=== PATIENT | female | born 1990 | race Asian ===

== ENCOUNTER → 2019-04-10 14:58 | Outpatient (CLI) | payer OTHER, SELFPAY ==
--- NOTE | 2019-04-10 15:04 | DI.US.S_ITS ---
PROCEDURE: US OB <= 14 WEEKS FETUS INDICATIONS: DATES OUTSIDE/PRIOR DATING DATA: First dating scan (date and location): 04/10/19. Estimated date of delivery (RACHEL) from first dating scan: 11/29/19. TECHNIQUE: Real-time scanning was performed of the fetus and maternal pelvic organs, with image documentation. Endovaginal scanning was also performed to better visualize the fetus and maternal ovaries. COMPARISON: None. FINDINGS: Embryo: There is a single intrauterine with a gestational sac, yolk sac, and pole visualized. [place]-rump length measured 8 mm corresponding to 6 weeks 5 days. heart activity demonstrated measuring 153 beats per minute. Measurement variability in dating: +/- 4 weeks by LMP, +/- 7 days by mean sac diameter (use before 6 weeks gestation if crown-rump length not able to be measured), +/- 5 days by crown-rump length (up to 8 weeks 6 days gestation), +/- 7 days by crown-rump length (up to 13 weeks 6 days gestation). Maternal organs: Ovaries within normal limits, with left corpus luteal cyst measuring 1.5 cm.. Limited images through the kidneys demonstrate no hydronephrosis. IMPRESSION: 1. 6 week 5 day single living intrauterine with estimated delivery date of 11/29/19. Dictated by: Дмитрий Coleman [facility] Interpreted: Beto Rizo MD on 04/10/2019 at 16:00 Approved by: Beto Rizo M.D. on 04/10/2019 at 17:58
== END ==
PROVIDERS: Visit Provider Obstetrics & Gynecology
DX: Z36.87 Encounter for antenatal screening for uncertain dates (principal); Z3A.01 Less than 8 weeks gestation of pregnancy
CPT/HCPCS: 76801; 76817

== ENCOUNTER → 2019-05-08 14:17 | Outpatient (CLI) | payer OTHER, MEDICAID, SELFPAY ==
[2019-05-08 15:02] LABS: Add Manual Diff / Slide Review NO; Basophils Absolute Auto 100 /uL (0-100); Basophils Percent Auto 0.7 % (0-2); Eosinophils Absolute Auto 300 /uL (0-450); Eosinophils Percent Auto 3.3 % (2-4); Hematocrit 35.6 % (36-46); Hemoglobin 12.3 g/dL (12.0-16.0); Lymphocytes Absolute Auto 1800 /uL (1100-4500); Lymphocytes Percent Auto 17.8 % (25-40); Mean Corpuscular HGB Conc 34.6 % (30-36); Mean Corpuscular Hemoglobin 28.5 PG (26-34); Mean Corpuscular Volume 82.5 fL (80-100); Monocytes Absolute Auto 500 /uL (0-900); Monocytes Percent Auto 4.6 % (3-14); Neutrophils Absolute Auto 7400 /uL (1500-7000); Neutrophils Percent Auto 73.6 % (50-75); Platelet Count 284 X10^3/uL (150-400); Red Blood Cell Count 4.31 X10^6/uL (4.0-5.2); Red Cell Distribution Width 13.1 % (11.6-14.8); White Blood Cell Count 10.1 X10^3/uL (4.5-11.0)
[2019-05-08 15:06] LABS: Appearance Urine UA CLEAR; Bilirubin Urine UA NEGATIVE (NEGATIVE); Color Urine UA YELLOW; Glucose Urine UA TRACE g/dL (Negative); Ketones Urine UA NEGATIVE (NEGATIVE); Leukocyte Esterase Urine UA NEGATIVE (NEGATIVE); Nitrite Urine UA NEGATIVE (Negative); Occult Blood Urine UA 3+ (Negative); Protein Urine UA NEGATIVE (Negative); Specific Gravity Urine UA <=1.005 (1.000-1.035); Urobilinogen Urine UA 0.2 E.U./dL (0.2)
[2019-05-08 15:18] LABS: Bacteria Urine None Seen; WBC Urine None Seen (0-5/HPF)
[2019-05-08 15:19] LABS: Culture Indicated Urine Cult Not Indicated; RBC Urine 1-5/HPF (0-5/HPF); Squamous Epithelial Cell Urine 1-5 /HPF (0-5/HPF)
[2019-05-08 16:30] LABS: Rubella Antibody IgG 33.8 IU/mL (>15)
[2019-05-08 16:44] LABS: Hepatitis B Surface Antigen NEGATIVE s/c (NEGATIVE)
[2019-05-08 16:47] LABS: HIV 1 & 2 Ab/Ag 4th Gen Combo NEGATIVE (NEGATIVE); Hep C Virus Ab w/Reflex Quant NEGATIVE s/c (NEGATIVE)
[2019-05-10 17:58] LABS: RPR Screen Nonreactive (Nonreactive)
== END ==
PROVIDERS: Obstetrics & Gynecology; PCP Obstetrics & Gynecology; Visit Provider Obstetrics & Gynecology
DX: Z34.81 Encounter for supervision of other normal pregnancy, first trimester (principal)
CPT/HCPCS: 36415; 80055; 81003; 81015; 86787; 86803; 86850; 86900; 86901; 87077; 87086; 87389

== ENCOUNTER → 2019-06-18 09:16 | Outpatient (CLI) | payer OTHER, MEDICAID, SELFPAY | PROVIDERS: PCP Obstetrics & Gynecology; Visit Provider Obstetrics & Gynecology | DX: Z34.02 Encounter for supervision of normal first pregnancy, second trimester (principal); Z53.9 Procedure and treatment not carried out, unspecified reason ==

== ENCOUNTER → 2019-07-13 06:59 | Outpatient (CLI) | payer OTHER, MEDICAID, SELFPAY ==
--- NOTE | 2019-07-13 07:01 | DI.US.S_ITS ---
PROCEDURE: US OB >= 14 WEEKS FETUS INDICATIONS: ANATOMY; KNOWN PREVIA OUTSIDE/PRIOR DATING DATA: Last menstrual period (LMP): Unknown. LMP-based estimated date of delivery (RACHEL): Unknown. First dating scan (date and location): 04/10/19. Estimated date of delivery (RACHEL) from first dating scan: 11/29/19. TECHNIQUE: Real-time scanning was performed of the fetus, with image documentation and biometric measurements. COMPARISON: [facility], OB <= 14 WEEKS FETUS, 06/15/2019, 16:32. [facility] OB <= 14 WEEKS FETUS, 05/08/2019, 13:51. [facility] OB <= 14 WEEKS FETUS, 04/10/2019, 15:11. [facility], OB >= 14 WEEKS FETUS, 06/22/2019, 11:02. FINDINGS: General: A single living intrauterine gestation is present. Presentation: Vertex. Placenta: Placental position is posterior. Lower uterine contraction is present throughout the exam, limiting evaluation. Amniotic fluid index: 15.5 cm, normal range is 5-24 cm. heart rate: 152 beats per minute. Maternal cervical canal: 4.5 cm long. Normal lower limit is 2.5 cm. Report any funneling of internal cervical os: % of canal length, shape (U or V), width or any U-shaped funneling. biometrics: Biparietal diameter: 5.0 cm 21 weeks zero days Head circumference: 18.6 cm 20 weeks 6 days Abdominal circumference: 17.6 cm 22 weeks 3 days Femur length: 3.3 cm 20 weeks one day Estimated gestational age from initial scan: 20 weeks one day Composite gestational age from present scan: 21 weeks one day Estimated weight and percentile: 420 g 97th percentile Measurement variability for biometric dating: +/- 7 days from 14 weeks to 15 weeks 6 days gestation, +/- 10 days from 16 weeks to 21 weeks 6 days gestation, +/- 2 weeks from 22 weeks to 27 weeks 6 days gestation, +/- 3 weeks for 28 weeks gestation or later. weight reference: 4500 g or EFW >90/95% is considered macrosomia or large for gestational age. EFW <10% is small for gestational age. EFW 5% or less is considered intra-uterine growth restriction. Anatomic survey: Neuro: Ventricles are non-dilated at less than 10 mm. Cisterna magna is normal at 3-11 mm. Cerebellum is normal in size and morphology. Nuchal skin fold: Normal at less than 6 mm between 14-21 weeks gestational age. Face: Nose and lips, facial profile are not well seen. Spine: No evidence for spina bifida. Heart: 4-chambered heart is present, with normal ventricular outflow tracts. Diaphragm: Diaphragm is intact. Stomach: Left-sided stomach is present. Kidneys: No hydronephrosis. Normal is less than 5 mm in 2nd trimester, less than 7 mm in 3rd trimester. Cord: 3-vessel cord has orthotopic insertion. Bladder: Normal in size. Extremities: All 4 extremities identified. Other: Uterine fibroid is noted. IMPRESSION: 1. Single intrauterine with ultrasound gestational age today is 21 weeks one day compared to 20 weeks one day from initial ultrasound. Ultrasound RACHEL is unchanged at 11/29/19. 2. Nonspecific tachycardia is identified. Recommend interval follow up for additional evaluation. 3. Profiled and not well-seen. Recommend interval follow up for further evaluation. 4. Lower uterine segment contraction present throughout exam, which limits evaluation for previa. Interval followup is recommended to further evaluate for presence of previa. Dictated by: Tameka Okeefe M.D. on 07/13/2019 at 10:11 Approved by: Tameka Okeefe M.D. on 07/13/2019 at 10:31
== END ==
PROVIDERS: PCP Obstetrics & Gynecology; Referring Provider Obstetrics & Gynecology; Visit Provider Obstetrics & Gynecology
DX: O44.02 Complete placenta previa NOS or without hemorrhage, second trimester (principal); O36.8320 Maternal care for abnormalities of the fetal heart rate or rhythm, second trimester, not applicable or unspecified; Z3A.21 21 weeks gestation of pregnancy
CPT/HCPCS: 76811

== ENCOUNTER → 2019-07-21 08:40 | Outpatient (CLI) | payer OTHER, MEDICAID, SELFPAY ==
--- NOTE | 2019-07-21 08:41 | DI.US.S_ITS ---
PROCEDURE: US OB FOLLOW UP INDICATIONS: PROFILE AND PLACENTAL LOCATION OUTSIDE/PRIOR DATING DATA: Last menstrual period (LMP): Unknown. LMP-based estimated date of delivery (RACHEL): Unknown. First dating scan (date and location): 04/10/19. Estimated date of delivery (RACHEL) from first dating scan: 11/29/19. TECHNIQUE: Real-time scanning was performed of the fetus, with image documentation. Endovaginal scanning: Was performed COMPARISON: [facility], OB >= 14 WEEKS FETUS, 07/13/2019, 7:23. [facility], US OB >= 14 WEEKS FETUS, 06/22/2019, 11:02. [facility], OB <= 14 WEEKS FETUS, 06/15/2019, 16:32. [facility], OB <= 14 WEEKS FETUS, 05/08/2019, 13:51. [facility], OB <= 14 WEEKS FETUS, 04/10/2019, 15:11. FINDINGS: A single living intrauterine gestation is present. Presentation: Transverse/head maternal right. Placenta: Placental position is posterior, and there is marginal previa Amniotic fluid index: 16.2 cm, normal range is 5-24 cm. heart rate: 208-75 beats per minute. Maternal cervical canal: 5.9 cm long. Normal lower limit is 2.5 cm. Estimated gestational age from initial scan: 21 weeks 2 days. IMPRESSION: Single living intrauterine fetus in transverse presentation as above Marginal placenta previa. Recommend followup arrhythmia as before, with heart rate spanning 75-28 beats per minute. facial profile is only partially visualized secondary to gestational position. As clinically desired, followup could be performed Dictated by: Ji Ahuja M.D. on 07/21/2019 at 14:11 Approved by: Ji Ahuja M.D. on 07/21/2019 at 14:48
== END ==
PROVIDERS: PCP Obstetrics & Gynecology; Referring Provider Obstetrics & Gynecology; Visit Provider Obstetrics & Gynecology
DX: Z36.2 Encounter for other antenatal screening follow-up (principal); Z3A.21 21 weeks gestation of pregnancy
CPT/HCPCS: 76816; 76817

== ENCOUNTER → 2019-07-22 10:12 | Outpatient (CLI) | payer OTHER, MEDICAID, SELFPAY ==
[2019-07-22 11:16] LABS: Add Manual Diff / Slide Review NO; Basophils Absolute Auto 0 /uL (0-100); Basophils Percent Auto 0.2 % (0-2); Eosinophils Absolute Auto 300 /uL (0-450); Eosinophils Percent Auto 2.2 % (2-4); Hematocrit 35.4 % (36-46); Hemoglobin 12.2 g/dL (12.0-16.0); Lymphocytes Absolute Auto 1900 /uL (1100-4500); Lymphocytes Percent Auto 12.9 % (25-40); Mean Corpuscular HGB Conc 34.4 % (30-36); Mean Corpuscular Hemoglobin 28.6 PG (26-34); Mean Corpuscular Volume 83.3 fL (80-100); Monocytes Absolute Auto 600 /uL (0-900); Monocytes Percent Auto 3.9 % (3-14); Neutrophils Absolute Auto 11600 /uL (1500-7000); Neutrophils Percent Auto 80.8 % (50-75); Platelet Count 280 X10^3/uL (150-400); Red Blood Cell Count 4.24 X10^6/uL (4.0-5.2); Red Cell Distribution Width 13.1 % (11.6-14.8); White Blood Cell Count 14.4 X10^3/uL (4.5-11.0)
[2019-07-22 12:53] LABS: Free T4, Direct Thyroxine 0.81 ng/dL (0.78-2.19)
[2019-07-22 13:07] LABS: Thyroid Stimulating Hormone 0.62 uIU/mL (0.47-4.68)
[2019-07-24 17:16] LABS: ANA Screen, IFA NEGATIVE (NEGATIVE)
[2019-07-25 16:25] LABS: Cardiolipin Ab IgG < 14 GPL; Cardiolipin Ab IgM < 12 MPL; PTT-LA Screen 31 seconds (< OR = 40); dRVVT Screen 33 seconds (< OR = 45)
[2019-07-26 10:29] LABS: B2-Glycoprotein I IgA AB < 9 SAU (< OR = 20); B2-Glycoprotein I IgG AB < 9 SGU (< OR = 20); B2-Glycoprotein I IgM AB < 9 SMU (< OR = 20); Cardiolipin Ab IgG < 14 GPL; Cardiolipin Ab IgM < 12 MPL; Phos. Serine AB IgM < 25 U/mL
== END ==
PROVIDERS: PCP Obstetrics & Gynecology; Referring Provider Obstetrics & Gynecology; Visit Provider Obstetrics & Gynecology
DX: Z34.90 Encounter for supervision of normal pregnancy, unspecified, unspecified trimester (principal)
CPT/HCPCS: 36415; 84439; 84443; 85025; 85597; 85613; 85730; 86038; 86146; 86147; 86148; 86235

== ENCOUNTER 2019-07-24 08:49 | Emergency (ER) | payer OTHER, MEDICAID, SELFPAY ==
[2019-07-24 08:56] VITALS: BP 129/84; PULSE 104; RESP 16; TEMP 37; O2SAT 99; BMI 26.5
--- NOTE | 2019-07-24 09:06 | PC.NURSE ---
Pt 21 wks . Pl[address] Previa. Dr Pacheco is her OB. having abd pain x 3 days. US in [place] yesterday due to baby's HR being elevated and her having pain. pain subsided this morning around 0730 when she noticed she was bleeding. pt states no clots and not saturating a pad an hour but blood was enough to soak through her pants onto bedsheets appears in good color. HR elevated 120's on arrival. IV placed and labs sent with T&S.
--- NOTE | 2019-07-24 09:12 | ED.PREGNANCY ---
HPI - General Chief complaint: OB/Uterine Contractions Stated complaint: Abdominal Pain / 21 weeks Time Seen by Provider: 07/24/19 09:04 Mode of arrival: Ambulatory History of Present Illness HPI Narrative: 28-year-old at 21 weeks gestational age with vaginal bleeding, known placenta previa with high risk and suspected cardiac abnormalities. Had some mild cramping last night and then over the course of the evening she had some vaginal bleeding that this morning was enough to soak through her underwear on to the bedding. More bleeding than simply spotting in eating a panty liner however not bleeding enough to fill of had an hour. It is red blood and cramping has completely stopped at this time. Related Data Home Medications Medication Instructions Recorded Confirmed prenat.vits,leo,[id number] 1 tab PO DAILY 04/27/19 07/24/19 Previous Rx's Medication Instructions Recorded docusate sodium 100 mg PO DAILY #30 cap 07/24/19 Allergies Allergy/AdvReac Type Severity Reaction Status Date / Time No Known Drug Allergies Allergy Verified 05/30/19 13:42 Review of Systems Review of Systems Narrative: Anxious, mild constipation Denies ? fever ? cough ? cold ? chills ? chest pain ? dyspnea ? orthopnea ? wheezing ? vomiting ? skin changes ? rashes Exam Narrative Exam Narrative: General: Healthy appearing, in no acute distress. Able to give a complete and coherent history. Well-nourished well-developed HEENT: Moist mucous membranes, normal sclera with reactive pupils, Neck: , supple Respiratory: Lungs are clear to auscultation, no wheezing no rales no rhonchi. Full and symmetrical air movement Cardiac: Regular rate and rhythm no murmurs no bruits Abdomen: Soft, gravid, nontender, good bowel tones, no flank pain Skin: Warm and dry, no rashes Neurologic: Grossly neurologically intact with no obvious asymmetries or abnormalities Extremities: No trauma, well perfused Psych: Cooperative, appropriate insight and affect Bedside ultrasound reveals a viable male fetus intrauterine, 3 vessel cord, normal fluid levels, cardiac exam is abnormal with an irregularity and it appears that he has right ventricle enlargement. Placenta previa approximately a cm of the placenta is overlying the internal os and the leading edge of the placenta has a small subchorionic hemorrhage. There is no funneling of the cervix. Initial Vital Signs Initial Vital Signs: Vital Signs Temperature 98.6 F 07/24/19 08:56 Pulse Rate 104 H 07/24/19 08:56 Respiratory Rate 16 07/24/19 08:56 Blood Pressure 129/84 07/24/19 08:56 Pulse Oximetry 99 07/24/19 08:56 Course Orders Ordered: ED Orders 07/24/19 11:00 EKG-12 Lead Stat Vital Signs Vital signs: Vital Signs - 8 hr 07/24/19 11:32 Pulse Rate 104 H Respiratory Rate 16 Blood Pressure 115/58 L Pulse Oximetry 99 MDM - OB/Uterine Contractions Lab Data Result diagrams: 07/24/19 09:03 07/24/19 09:03 Labs: Lab Results 07/24/19 07/24/19 07/24/19 Range/Units 09:03 09:03 09:03 WBC 14.4 H (4.5-11.0) X10^3/uL RBC 4.22 (4.0-5.2) X10^6/uL Hgb 12.1 (12.0-16.0) g/dL Hct 35.3 L (36-46) % MCV 83.7 (80-100) fL MCH 28.8 (26-34) PG MCHC 34.4 (30-36) % RDW 13.1 (11.6-14.8) % Plt Count 253 (150-400) X10^3/uL Neut % (Auto) 82.4 H (50-75) % Lymph % (Auto) 10.9 L (25-40) % [place] % (Auto) 4.5 (3-14) % Eos % (Auto) 1.8 L (2-4) % Baso % (Auto) 0.4 (0-2) % Neut # (Auto) 45493 H (9716-3847) /uL Lymph # (Auto) 1600 (3028-2931) /uL [place] # (Auto) 700 (0-900) /uL Eos # (Auto) 300 (0-450) /uL Baso # (Auto) 100 (0-100) /uL Sodium 137 (137-145) mmol/L Potassium 3.9 (3.4-5.1) mmol/L Chloride 105 (98-107) mmol/L Carbon Dioxide 22 (22-32) mmol/L BUN 6 L (7-17) mg/dL Creatinine 0.40 L (0.52-1.04) mg/dL Estimated GFR > 60.0 (>60) mL/min BUN/Creatinine Ratio 15.0 (6-22) Glucose 99 (70-100) mg/dL Calcium 9.4 (8.4-10.2) mg/dL Total Bilirubin 0.4 (0.2-1.3) mg/dL AST 30 (14-36) IU/L ALT 20 (<35) IU/L Alkaline Phosphatase 62 (38-126) U/L Total Protein 8.0 (6.3-8.2) g/dL Albumin 4.2 (3.5-5.0) g/dL Globulin 3.8 (1.7-4.1) g/dL Albumin/Globulin Ratio 1.1 (1.0-2.8) HCG, Quant 83352 mIU/mL Urine Color Urine Appearance Urine pH (4.5-8.0) Ur Specific [place] (1.000-1.035) Urine Protein (Negative) Urine Glucose (UA) (Negative) g/dL Urine Ketones (NEGATIVE) Urine Occult Blood (Negative) Urine Nitrate (Negative) Urine Bilirubin (NEGATIVE) Urine Urobilinogen (0.2) E.U./dL Ur Leukocyte Esterase (NEGATIVE) Urine RBC (0-5/HPF) Urine WBC (0-5/HPF) Ur Squamous Epith Cells (0-5/HPF) Urine Bacteria (None) Ur Culture Indicated? Blood Type A Positive Antibody Screen Negative 07/24/19 Range/Units 09:24 WBC (4.5-11.0) X10^3/uL RBC (4.0-5.2) X10^6/uL Hgb (12.0-16.0) g/dL Hct (36-46) % MCV (80-100) fL MCH (26-34) PG MCHC (30-36) % RDW (11.6-14.8) % Plt Count (150-400) X10^3/uL Neut % (Auto) (50-75) % Lymph % (Auto) (25-40) % [place] % (Auto) (3-14) % Eos % (Auto) (2-4) % Baso % (Auto) (0-2) % Neut # (Auto) (7568-0100) /uL Lymph # (Auto) (7786-4734) /uL [place] # (Auto) (0-900) /uL Eos # (Auto) (0-450) /uL Baso # (Auto) (0-100) /uL Sodium (137-145) mmol/L Potassium (3.4-5.1) mmol/L Chloride (98-107) mmol/L Carbon Dioxide (22-32) mmol/L BUN (7-17) mg/dL Creatinine (0.52-1.04) mg/dL Estimated GFR (>60) mL/min BUN/Creatinine Ratio (6-22) Glucose (70-100) mg/dL Calcium (8.4-10.2) mg/dL Total Bilirubin (0.2-1.3) mg/dL AST (14-36) IU/L ALT (<35) IU/L Alkaline Phosphatase (38-126) U/L Total Protein (6.3-8.2) g/dL Albumin (3.5-5.0) g/dL Globulin (1.7-4.1) g/dL Albumin/Globulin Ratio (1.0-2.8) HCG, Quant mIU/mL Urine Color Red Urine Appearance Sl cloudy Urine pH 5.5 (4.5-8.0) Ur Specific [place] 1.020 (1.000-1.035) Urine Protein Negative (Negative) Urine Glucose (UA) Trace H (Negative) g/dL Urine Ketones Trace H (NEGATIVE) Urine Occult Blood 3+ H (Negative) Urine Nitrate Negative (Negative) Urine Bilirubin Negative (NEGATIVE) Urine Urobilinogen 0.2 (0.2) E.U./dL Ur Leukocyte Esterase Trace H (NEGATIVE) Urine RBC 30-100/hpf H (0-5/HPF) Urine WBC 0-1/hpf (0-5/HPF) Ur Squamous Epith Cells 10-30 /hpf H D (0-5/HPF) Urine Bacteria None seen (None) Ur Culture Indicated? Cult not indicated Blood Type Antibody Screen MDM Narrative Medical decision making narrative: 1043: Care reveiwed with Dr Pacheco. Will come to evjus pt in ED and help with dispo planning Discharge Plan Departure Patient Disposition: Home Clinical Impression: Placenta previa Qualifiers: Trimester: second trimester Qualified Code(s): O44.02 - Complete placenta previa NOS or without hemorrhage, second trimester Qualifiers: Weeks of gestation: 21 weeks Qualified Code(s): Z3A.21 - 21 weeks gestation of Discharge Date/Time: 07/24/19 11:33 Instructions: DI for Placenta Previa Activity Restrictions/Additional Instructions: Thank you for coming in today The bleeding is from the very edge of your placenta just lifting up a bit. There is nothing more that needs to or can be done at this time. Your baby looks like he is tolerating this very nicely. For your constipation, please use the stool softener, docusate. You can use it once daily and if that isn't enough it can be increased to twice daily very safely and will not affect her otherwise. I would recommend modified bedrest, it is okay to walk around her house but I would not recommend specific exercise, extended excursions, or lifting heavy things. Pelvic rest is also appropriate. This means no fingers, toys or penises in your vagina and no organisms. Please keep your follow-up appointment with all of your OB providers. If you find that you are bleeding more heavily, it is bright red or your feeling more dizzy, lightheaded or short of breath you do need to return to the emergency department I hope everything works out well for you. I wish you the best Prescriptions: New docusate sodium 100 mg capsule 100 mg PO DAILY Qty: 30 RF: 0 No Action prenat.vits,leo,[id number] Tablet 1 tab PO DAILY RF: 0 Referrals: Germania Pacheco MD [Primary Care Provider] -
[2019-07-24 09:24] LABS: Add Manual Diff / Slide Review NO; Basophils Absolute Auto 100 /uL (0-100); Basophils Percent Auto 0.4 % (0-2); Eosinophils Absolute Auto 300 /uL (0-450); Eosinophils Percent Auto 1.8 % (2-4); Hematocrit 35.3 % (36-46); Hemoglobin 12.1 g/dL (12.0-16.0); Lymphocytes Absolute Auto 1600 /uL (1100-4500); Lymphocytes Percent Auto 10.9 % (25-40); Mean Corpuscular HGB Conc 34.4 % (30-36); Mean Corpuscular Hemoglobin 28.8 PG (26-34); Mean Corpuscular Volume 83.7 fL (80-100); Monocytes Absolute Auto 700 /uL (0-900); Monocytes Percent Auto 4.5 % (3-14); Neutrophils Absolute Auto 11900 /uL (1500-7000); Neutrophils Percent Auto 82.4 % (50-75); Platelet Count 253 X10^3/uL (150-400); Red Blood Cell Count 4.22 X10^6/uL (4.0-5.2); Red Cell Distribution Width 13.1 % (11.6-14.8); White Blood Cell Count 14.4 X10^3/uL (4.5-11.0)
[2019-07-24 09:30] LABS: Bacteria Urine None Seen
[2019-07-24 09:30] LABS: Alanine Aminotransferase 20 IU/L (<35); Albumin 4.2 g/dL (3.5-5.0); Albumin Globulin Ratio 1.1 (1.0-2.8); Alkaline Phosphatase 62 U/L (38-126); Aspartate Aminotransferase 30 IU/L (14-36); Bilirubin Total 0.4 mg/dL (0.2-1.3); Blood Urea Nitrogen 6 mg/dL (7-17); Calcium 9.4 mg/dL (8.4-10.2); Carbon Dioxide 22 mmol/L (22-32); Chloride 105 mmol/L (98-107); Estimated Glomerular Filt Rate > 60.0 mL/min (>60); Globulin 3.8 g/dL (1.7-4.1); Glucose 99 mg/dL (70-100); Potassium 3.9 mmol/L (3.4-5.1); Sodium 137 mmol/L (137-145)
[2019-07-24 09:33] LABS: Appearance Urine UA SL CLOUDY; Bilirubin Urine UA NEGATIVE (NEGATIVE); Color Urine UA RED; Glucose Urine UA TRACE g/dL (Negative); Ketones Urine UA TRACE (NEGATIVE); Leukocyte Esterase Urine UA TRACE (NEGATIVE); Nitrite Urine UA NEGATIVE (Negative); Occult Blood Urine UA 3+ (Negative); Protein Urine UA NEGATIVE (Negative); Urobilinogen Urine UA 0.2 E.U./dL (0.2)
[2019-07-24 09:37] LABS: pH Urine UA 5.5 (4.5-8.0)
[2019-07-24 09:39] LABS: Culture Indicated Urine Cult Not Indicated; RBC Urine 30-100/HPF (0-5/HPF); Squamous Epithelial Cell Urine 10-30 /HPF (0-5/HPF); WBC Urine 0-1/HPF (0-5/HPF)
--- NOTE | 2019-07-24 10:03 | PC.NURSE ---
bedside US completed by Dr Andrade. pt tolerated well.
[2019-07-24 10:10] LABS: HCG Quantitative /Beta subunit 24666 mIU/mL; HEMOLYSIS 21 (0-50)
--- NOTE | 2019-07-24 11:15 | PC.NURSE ---
Dr vance to come consult. EKG being obtained
--- NOTE | 2019-07-24 11:26 | P.CONS_ITS ---
History of Present Illness Consult details Date Patient Seen: 07/24/19 Time Patient Seen: 11:00 Chief complaint: Abdominal Pain / 21 weeks Reason for consult: vaginal bleeding, cramping and heart arrhythmia Requesting provider: Yuliet Andrade Narrative: This patient is a 28yo @21+5 by 1st trimester ultrasound, with a known posterior placenta previa and currently being evaluated for hearth arrhythmia, presenting due to cramping and spotting overnight. She reports that she had her appointment with [facility] and cardiology yesterday, and that she walked a lot in [place] and did shopping. She reports that overnight she began having lower abdominal and especially left sided cramping pain, and that this morning, she had bright red bleeding heavy enough to soak through her pants while lying in bed with ongoing leakage which slowed to spotting during her ambulance ride to the ED. She reports that the cramping is ongoing and especially located in the LLQ. She reports no change in movement from her baseline, and denies dysuria or other UTI symptoms. She does report significant constipation. She has been adherent to pelvic rest. The patient's has been complicated by vaginal bleeding and spotting since the 1st trimester, with a posterior placenta extending approx. 1cm over the internal os at this point. She required a laparascopic appendectomy early in the 1st trimester. At her anatomy scan, a heart rate was noted to be variable between 75-220, and evaluation in the office revealed an irregularly irregular rhythm. The patient has no personal or family history of thyroid dysfunction or autoimmune disease, and is currently being evaluated by [facility] for both the heart abnormality and the previa. She has a history of two uncomplicated vaginal deliveries, and has no other contributory medical or surgical history. Meds Home Medications and Allergies Home Medications Medication Instructions Recorded Confirmed Type prenat.vits,leo,[id number]-[id number] 1 tab PO DAILY 04/27/19 07/24/19 History docusate sodium 100 mg PO DAILY #30 cap 07/24/19 Rx Allergies Allergy/AdvReac Type Severity Reaction Status Date / Time No Known Drug Allergies Allergy Verified 05/30/19 13:42 Review of Systems Constitutional Constitutional: Reports system reviewed and no additional complaints, except as documented Cardiovascular Cardiovascular: Reports system reviewed; no additional complaints, except as documented Respiratory Respiratory: Reports system reviewed and no additional complaints, except as documented Gastrointestinal Gastrointestinal: Reports as per HPI Genitourinary Genitourinary: Reports as per HPI Exam Vital Signs (past 8 hours): - 07/24/19 08:56 Temperature 98.6 F Pulse Rate 104 H Respiratory Rate 16 Blood Pressure 129/84 Pulse Oximetry 99 Oxygen Delivery Method Room Air Const General: cooperative, comfortable, well groomed and anxious Other: Patient accompanied by family, anxious and lying in bed. GI Palpation: soft and tender (especially in LLQ) Other: Deferred due to previa and described bleeding Objective Labs Result Diagrams: 07/24/19 09:03 07/24/19 09:03 Labs: Laboratory Results - last 24 hr 07/24/19 07/24/19 07/24/19 09:03 09:03 09:03 WBC 14.4 H RBC 4.22 Hgb 12.1 Hct 35.3 L MCV 83.7 MCH 28.8 MCHC 34.4 RDW 13.1 Plt Count 253 Neut % (Auto) 82.4 H Lymph % (Auto) 10.9 L [place] % (Auto) 4.5 Eos % (Auto) 1.8 L Baso % (Auto) 0.4 Neut # (Auto) 09816 H Lymph # (Auto) 1600 [place] # (Auto) 700 Eos # (Auto) 300 Baso # (Auto) 100 Sodium 137 Potassium 3.9 Chloride 105 Carbon Dioxide 22 BUN 6 L Creatinine 0.40 L Estimated GFR > 60.0 BUN/Creatinine Ratio 15.0 Glucose 99 Calcium 9.4 Total Bilirubin 0.4 AST 30 ALT 20 Alkaline Phosphatase 62 Total Protein 8.0 Albumin 4.2 Globulin 3.8 Albumin/Globulin Ratio 1.1 HCG, Quant 47345 Urine Color Urine Appearance Urine pH Ur Specific [place] Urine Protein Urine Glucose (UA) Urine Ketones Urine Occult Blood Urine Nitrate Urine Bilirubin Urine Urobilinogen Ur Leukocyte Esterase Urine RBC Urine WBC Ur Squamous Epith Cells Urine Bacteria Ur Culture Indicated? Blood Type A Positive Antibody Screen Negative 07/24/19 09:24 WBC RBC Hgb Hct MCV MCH MCHC RDW Plt Count Neut % (Auto) Lymph % (Auto) [place] % (Auto) Eos % (Auto) Baso % (Auto) Neut # (Auto) Lymph # (Auto) [place] # (Auto) Eos # (Auto) Baso # (Auto) Sodium Potassium Chloride Carbon Dioxide BUN Creatinine Estimated GFR BUN/Creatinine Ratio Glucose Calcium Total Bilirubin AST ALT Alkaline Phosphatase Total Protein Albumin Globulin Albumin/Globulin Ratio HCG, Quant Urine Color Red Urine Appearance Sl cloudy Urine pH 5.5 Ur Specific [place] 1.020 Urine Protein Negative Urine Glucose (UA) Trace H Urine Ketones Trace H Urine Occult Blood 3+ H Urine Nitrate Negative Urine Bilirubin Negative Urine Urobilinogen 0.2 Ur Leukocyte Esterase Trace H Urine RBC 30-100/hpf H Urine WBC 0-1/hpf Ur Squamous Epith Cells 10-30 /hpf H D Urine Bacteria None seen Ur Culture Indicated? Cult not indicated Blood Type Antibody Screen Assessment & Plan Assessment & Plan narrative: This patient presents with mild bleeding and cramping likely due to her known placenta previa. The patient's fetus is pre- viable at 21 weeks gestation, and unfortunately, there are no therapeutic interventions that can stop spotting from the previa or a chronic placental abruption without ending the . We discussed that the heart rate abnormality is likely unrelated to the previa and bleeding, as the patient has not hemorrhaged to the point of impairing blood supply to the fetus. She also has a closed and long cervix, with no signs of labor. I presented the option of observation in L&D vs at home, and discussed precautions that should bring the patient into the hospital, including hemorrhage and signs of labor. The patient and her family vocalized understanding, and opted for discharge home with precautions and clinic follow up on Saturday. We discussed pelvic rest and modified bedrest, meaning ambulation is acceptable without lifting or prolonged ambulation. The patient also endorsed significant constipation, which may be co ntributing to her left lower quadrant cramping and which could lead to undesirable straining. The patient will be discharged on colace. I encouraged the patient and her family to call the clinic/answering service with any questions or concerns over the weekend, and to call or return to the ED if new symptoms develop or if her current symptoms worsen.
[2019-07-24 11:32] VITALS: BP 115/58; PULSE 104; RESP 16; O2SAT 99
== END 2019-07-24 11:33 | disposition home or self-care (01) ==
PROVIDERS: Emergency Provider Emergency Medicine; PCP Obstetrics & Gynecology
DX: O44.02 Complete placenta previa NOS or without hemorrhage, second trimester (principal); R07.9 Chest pain, unspecified; Z3A.21 21 weeks gestation of pregnancy
CPT/HCPCS: 36415; 80053; 81001; 84702; 85025; 86850; 86900; 86901; 93005; 93010; 99284

== ENCOUNTER 2019-08-03 14:52 | Observation (INO) | payer OTHER, MEDICAID, SELFPAY ==
--- NOTE | 2019-08-03 15:23 | DI.US.S_ITS ---
PROCEDURE: US OB LIMITED INDICATIONS: R/O PLACENTA PREVIA, VAG BLEEDING, DECREASED FHR OUTSIDE/PRIOR DATING DATA: Last menstrual period (LMP): Unknown. LMP-based estimated date of delivery (RACHEL): Unknown. First dating scan (date and location): 04/10/19. Estimated date of delivery (RACHEL) from first dating scan: 11/29/19. TECHNIQUE: Real-time scanning was performed of the fetus, with image documentation and biometric measurements. Endovaginal scanning: Performed COMPARISON: [facility], OB >= 14 WEEKS FETUS, 07/27/2019, 10:52. [facility] OB FOLLOW UP, 07/21/2019, 9:17. [facility] OB >= 14 WEEKS FETUS, 07/13/2019, 7:23. [facility] OB >= 14 WEEKS FETUS, 06/22/2019, 11:02. [facility] OB <= 14 WEEKS FETUS, 06/15/2019, 16:32. [facility] OB <= 14 WEEKS FETUS, 05/08/2019, 13:51. [facility] OB <= 14 WEEKS FETUS, 04/10/2019, 15:11. FINDINGS: General: A single living intrauterine gestation is present. Presentation: Breech. Placenta: Placental position is posterior, and there is marginal previa. heart rate: arrhythmia measuring 87-144 beats per minute. Maternal cervical canal: 6.7 cm long. Normal lower limit is 2.5 cm. Other: Not applicable. IMPRESSION: Single living intrauterine fetus demonstrating breech presentation arrhythmia as above. Marginal placenta previa. Recommend followup Maternal cervical canal length measures 6.7 cm. Dictated by: Ji Ahuja M.D. on 08/03/2019 at 17:28 Approved by: Ji Ahuja M.D. on 08/03/2019 at 17:34
--- NOTE | 2019-08-03 16:19 | P.TNLD_ITS ---
Visit Information Visit Information Date of evaluation: 08/03/19 Primary OB Provider: Germania Pacheco On-call OB Provider: Veronica Rene Comments/Additional reasons for admission: 29 YO @ [id number] here for evaluation of vaginal bleeding. Was seen in clinic today and shortly after going home, noticied menstrual like cramping and bright red vaginal bleeding. Scant, dark brown bleeding upon arrival at triage and cramping has decreased. Known placenta previa and arrhythmia, co-managed w/ [facility]. [facility] Medical History Hypercholesterolemia (Acute) Surgical History History of laparoscopic appendectomy (Acute) Family History Father COPD (chronic obstructive pulmonary disease) Acute alcohol abuse Grandmother Kidney failure Hypertension COPD (chronic obstructive pulmonary disease) Grandfather COPD (chronic obstructive pulmonary disease) Sister Hyperlipidemia Brother Hypertension Social History marital status: household members: spouse, family, children and other pets and animals: Yes (cat - aware and a dog) education level: college occupational status: unemployed current occupational exposures/hazards: No iwona/sikh: Yazdanism special iwona needs: No Smoking Status: Never smoker Review of Systems Review of Systems ROS: Yes All systems reviewed with the patient and are negative except as otherwise documented Exam Vital Signs (past 8 hours): HR 108, BP 108/62, T36.9 Uterus Location (Fundal Height): 23 Presentation: transverse/shoulder Objective Imaging OB US >14wks Limited: Radiologist's impression: Patient: Sayra Love MMR#: [id number] : 1990Acct:[id number] Age/Sex: 29 / FDate of Service: 08/03/19 Loc: [id number] Accession Number: [id number] Procedure: US OB limited Ordering Provider: Veronica Rene C.N.M. PROCEDURE: US OB LIMITED INDICATIONS: R/O PLACENTA PREVIA, VAG BLEEDING, DECREASED FHR OUTSIDE/PRIOR DATING DATA: Last menstrual period (LMP): Unknown. LMP-based estimated date of delivery (RACHEL): Unknown. First dating scan (date and location): 04/10/19. Estimated date of delivery (RACHEL) from first dating scan: 11/29/19. TECHNIQUE: Real-time scanning was performed of the fetus, with image documentation and biometric measurements. Endovaginal scanning: Performed COMPARISON: [facility], OB >= 14 WEEKS FETUS, 07/27/2019, 10:52. Merged with [facility] OB FOLLOW UP, 07/21/2019, 9:17. Merged with [facility] OB >= 14 WEEKS FETUS, 07/13/2019, 7:23. [facility] OB >= 14 WEEKS FETUS, 06/22/2019, 11:02. [facility] OB <= 14 WEEKS FETUS, 06/15/2019, 16:32. [facility] OB <= 14 WEEKS FETUS, 05/08/2019, 13:51. Merged with [facility] OB <= 14 WEEKS FETUS, 04/10/2019, 15:11. FINDINGS: General: A single living intrauterine gestation is present. Presentation: Breech. Placenta: Placental position is posterior, and there is marginal previa. heart rate: arrhythmia measuring 87-144 beats per minute. Maternal cervical canal: 6.7 cm long. Normal lower limit is 2.5 cm. Other: Not applicable. IMPRESSION: Single living intrauterine fetus demonstrating breech presentation arrhythmia as above. Marginal placenta previa. Recommend followup. Labs Result Diagrams: 08/03/19 16:10 Evaluation Evaluation Uterine Contraction Intensity: Mild Comments: Audible arrhythmia between 88-130's bpm Contractions- Q2-5 minutes, mild Diagnosis, Plan/Disposition Final Diagnosis (1) arrhythmia affecting , antepartum: Current Visit: Yes Status: Acute Plan/Disposition Plan: Spoke w/ Dr. Purdy @ 1600 who agreed w/ POC to evaluate w/ US. As long as no significant bleeding, he states FHR is unchanged from clinic today and pt is stable for discharge to home. Consulted [facility] @ 1700 after US was completed. [facility] provider just scrubbed in and will call back in 45 minutes. Called [facility] again at 1800 and did not receive response from provider. 1820: Patient discharged to home w/ routine precautions, reassurance given pre term contractions in context of 6.7cm CL. Follow-up w/ OB and MFM as previously scheduled. OB Disposition: home
[2019-08-03 16:20] LABS: Hematocrit 32.8 % (36-46); Hemoglobin 11.2 g/dL (12.0-16.0); Mean Corpuscular HGB Conc 34.3 % (30-36); Mean Corpuscular Hemoglobin 28.7 PG (26-34); Mean Corpuscular Volume 83.6 fL (80-100); Platelet Count 271 X10^3/uL (150-400); Red Blood Cell Count 3.92 X10^6/uL (4.0-5.2); Red Cell Distribution Width 12.9 % (11.6-14.8); White Blood Cell Count 10.9 X10^3/uL (4.5-11.0)
== END 2019-08-03 18:00 | disposition home or self-care (01) ==
LOC: LABOR 14:54
PROVIDERS: Nurse Practitioner Obstetrics & Gynecology; Admitting Provider Obstetrics & Gynecology; PCP Obstetrics & Gynecology; Referring Provider Obstetrics & Gynecology; Visit Provider Obstetrics & Gynecology
DX: O36.8320 Maternal care for abnormalities of the fetal heart rate or rhythm, second trimester, not applicable or unspecified (principal); O46.92 Antepartum hemorrhage, unspecified, second trimester; Z3A.23 23 weeks gestation of pregnancy
CPT/HCPCS: 59025; 76815; 85027; 86850; 86900; 86901; 96360; G0378; G0379

== ENCOUNTER 2019-08-06 18:21 | Outpatient (CLI) | payer OTHER, MEDICAID, SELFPAY ==
--- NOTE | 2019-08-06 19:30 | PM.OBTRLD ---
Visit Information Visit Information Date of evaluation: 08/06/19 Primary OB Provider: Germania Pacheco On-call OB Provider: María Elena Anderson Reason for Evaluation: Yes non-stress test Comments/Additional reasons for admission: Patient is a 29 year old at 23 wks and 4 days here for evaluation of vaginal bleeding that began a couple hours prior to presentation. She called the OB clinic and was advised to come to the center. Bleeding was primarily with wiping with urination and a small amount on her pad. In the center she had two dime sized spots on her pad. Denied cramps or contractions. Apparently she had been to [facility] before the bleeding started. No recent intercourse. Known placenta previa and arrhythmia. She was just seen by Dr. Purdy today in clinic and had a reassuring US without changes in arrhythmia. Vital Signs Vital Signs: Temperature 36.5? blood pressure 114/58 heart rate 106 PFSH Medical History Hypercholesterolemia (Acute) Surgical History History of laparoscopic appendectomy (Acute) Family History Father COPD (chronic obstructive pulmonary disease) Acute alcohol abuse Grandmother Kidney failure Hypertension COPD (chronic obstructive pulmonary disease) Grandfather COPD (chronic obstructive pulmonary disease) Sister Hyperlipidemia Brother Hypertension Social History marital status: household members: spouse, family, children and other pets and animals: Yes (cat - aware and a dog) education level: college occupational status: unemployed current occupational exposures/hazards: No iwona/adventist: Mandaen special iwona needs: No Smoking Status: Never smoker Evaluation Evaluation Baseline heart rate: 140 Contraction Frequency (minutes): 0 Comments: Exceedingly difficult to monitor fetus despite RN holding the monitor in place. At the bedside FHT were 140s-150s per RN with brief drops to the 50s for a couple beats then right back up. No contractions on monitor. Diagnosis, Plan/Disposition Final Diagnosis (1) arrhythmia affecting , antepartum: Current Visit: No Status: Acute (2) Spotting affecting in second trimester: Current Visit: No Status: Acute (3) 23 weeks gestation of : Current Visit: No Status: Acute Plan/Disposition Plan: Patient is a 29 year old at 23 wks and 4 days here for evaluation of light vaginal bleeding in the setting of known marginal placenta as well as arrhythmia followed by MFM. Bleeding was very light in the center and did not recur. No contractions or cramping. Patient had a reassuring OB appointment with US earlier today with Dr. Purdy. Due to arrhythmia, fetus is very difficult to monitor. Discussed with Dr. Purdy who is familiar with patient. He is not concerned about well-being given reassuring US today and bleeding is scant. He recommended home on strict bed rest - up only to use the bathroom and to perform self-care. She needs to isolate at home given risk of coronavirus in the community and is only to leave her house to attend her OB appointments. OB Disposition: home
== END 2019-08-06 19:41 | disposition home or self-care (01) ==
LOC: OB 08-07 14:50
PROVIDERS: PCP Obstetrics & Gynecology; Referring Provider Family Medicine; Visit Provider Family Medicine
DX: O20.9 Hemorrhage in early pregnancy, unspecified (principal); O36.8320 Maternal care for abnormalities of the fetal heart rate or rhythm, second trimester, not applicable or unspecified; O44.32 Partial placenta previa with hemorrhage, second trimester; Z3A.23 23 weeks gestation of pregnancy
CPT/HCPCS: 59025; G0378; G0379

== ENCOUNTER → 2019-08-24 11:00 | Outpatient (CLI) | payer OTHER, MEDICAID, SELFPAY ==
[2019-08-24 12:55] LABS: Hematocrit 32.1 % (36-46); Hemoglobin 10.9 g/dL (12.0-16.0)
[2019-08-24 13:39] LABS: GTT (PREG) 1 Hour PP 50gm Dose 135 mg/dL (76-139)
== END ==
PROVIDERS: Specialist; PCP Obstetrics & Gynecology; Referring Provider Obstetrics & Gynecology; Visit Provider Obstetrics & Gynecology
DX: Z34.82 Encounter for supervision of other normal pregnancy, second trimester (principal); Z3A.26 26 weeks gestation of pregnancy
CPT/HCPCS: 36415; 82950; 85014; 85018

== ENCOUNTER 2019-08-30 12:06 | Observation (INO) | payer OTHER, MEDICAID, SELFPAY ==
--- NOTE | 2019-08-30 12:26 | PM.OBTRLD ---
Visit Information Visit Information Date of evaluation: 08/30/19 Primary OB Provider: Shea Ashford On-call OB Provider: Germania Pacheco Reason for Evaluation: Yes other Comments/Additional reasons for admission: Mucusy vaginal bleeding Vital Signs Vital Signs: Blood pressure 124/60, pulse of 102, temperature 97.5? [facility] Social History marital status: household members: spouse, family, children and other pets and animals: Yes (cat - aware and a dog) education level: college occupational status: unemployed current occupational exposures/hazards: No iwona/mormonism: Yarsani special iwona needs: No Smoking Status: Never smoker Review of Systems Review of Systems Narrative: Patient denies contractions or cramping but does have some lower pelvic discomfort. They were concerned and came in to be evaluated due to blood that was mucousy that came out on her pad. It was more than usual. Good movement. No fevers. ROS: Yes All systems reviewed with the patient and are negative except as otherwise documented Exam Narrative Exam Narrative: Abdomen is soft, nontender. Ultrasound the fetus is breech. Normal amniotic fluid. Good movement. Placenta is a previa with no obvious retroplacental bleeding. Normal external genitalia, vagina, cervix with mal amount of mucousy blood coming from the os. The os appears to be close. Gentle digital exam reveals cervix is long and closed. Evaluation Evaluation Baseline heart rate: 115 (Significant arrhythmia noted.) Uterine Contraction Intensity: Mild (3-7 minutes) Category of Tracing: II (Irregular, otherwise consistent with 26 week gestation) Cervical dilation (cm): 0 Cervical effacement (%): 0 station: -4 Diagnosis, Plan/Disposition Final Diagnosis (1) Spotting affecting in second trimester: Current Visit: No Status: Acute (2) arrhythmia affecting , antepartum: Current Visit: No Status: Acute (3) 26 weeks gestation of : Current Visit: Yes Status: Acute Plan/Disposition Plan: Patient was given nifedipine and IV fluid bolus. Her uterine irratability resolved and she had no significant bleeding. She was dischaged home. She is to keep her routine OB appointment unless she has increased bleeding, pain, decreased movement OB Disposition: home
[2019-08-30] MEDS: NIFEdipine 10 MG CAPSULE PO ×4 (12:35→13:29)
== END 2019-08-30 15:00 | disposition home or self-care (01) ==
LOC: LABOR 12:08
PROVIDERS: Admitting Provider Specialist; PCP Obstetrics & Gynecology; Referring Provider Specialist; Visit Provider Specialist
DX: O26.852 Spotting complicating pregnancy, second trimester (principal); O32.1XX0 Maternal care for breech presentation, not applicable or unspecified; O36.8320 Maternal care for abnormalities of the fetal heart rate or rhythm, second trimester, not applicable or unspecified; Z3A.27 27 weeks gestation of pregnancy
CPT/HCPCS: 59025; 59050; 76815; 96360; G0378; G0379

== ENCOUNTER 2019-09-02 09:54 | Outpatient (CLI) | payer OTHER, MEDICAID, SELFPAY ==
--- NOTE | 2019-09-02 13:09 | PM.OBTRLD ---
Visit Information Visit Information Date of evaluation: 09/02/19 Primary OB Provider: Germania Pacheco Reason for Evaluation: Yes non-stress test Comments/Additional reasons for admission: Evaluation for contractions given patient uncertainty if feeling contractions or movement Vital Signs Vital Signs: VSS [facility] Medical History Hypercholesterolemia (Acute) Surgical History History of laparoscopic appendectomy (Acute) Family History Father COPD (chronic obstructive pulmonary disease) Acute alcohol abuse Grandmother Kidney failure Hypertension COPD (chronic obstructive pulmonary disease) Grandfather COPD (chronic obstructive pulmonary disease) Sister Hyperlipidemia Brother Hypertension Social History marital status: household members: spouse, family, children and other pets and animals: Yes (cat - aware and a dog) education level: college occupational status: unemployed current occupational exposures/hazards: No iwona/rastafari: Yazidism special iwona needs: No Smoking Status: Never smoker Review of Systems Constitutional Constitutional: Reports system reviewed and no additional complaints, except as documented Exam Vital Signs (past 8 hours): VSS GI Palpation: soft and No tender Evaluation Evaluation Comments: FHR irregular due to known heart block. 2x ctx on admission, patient emptied bladder and had PO hydration, no further contractions on toco. Per patient, no contractions or contraction-like activity during monitoring. No vaginal bleeding or discharge, normal movement. Diagnosis, Plan/Disposition Plan/Disposition Plan: Discharged home with precautions to return with any bleeding or contractions. OB Disposition: home
== END 2019-09-02 11:05 | disposition home or self-care (01) ==
LOC: LABOR 10:32 → OB 09-03 12:57
PROVIDERS: PCP Obstetrics & Gynecology; Referring Provider Obstetrics & Gynecology; Visit Provider Obstetrics & Gynecology
DX: O47.02 False labor before 37 completed weeks of gestation, second trimester (principal); O44.02 Complete placenta previa NOS or without hemorrhage, second trimester; Z3A.27 27 weeks gestation of pregnancy
CPT/HCPCS: 59025; G0378; G0379

== ENCOUNTER 2019-09-03 13:20 | Observation (INO) | payer OTHER, MEDICAID, SELFPAY ==
[2019-09-03 14:10] LABS: Add Manual Diff / Slide Review NO; Basophils Absolute Auto 100 /uL (0-100); Basophils Percent Auto 0.4 % (0-2); Eosinophils Absolute Auto 300 /uL (0-450); Eosinophils Percent Auto 2.5 % (2-4); Hematocrit 34.7 % (36-46); Hemoglobin 11.5 g/dL (12.0-16.0); Lymphocytes Absolute Auto 1900 /uL (1100-4500); Lymphocytes Percent Auto 14.4 % (25-40); Mean Corpuscular Hemoglobin 27.8 PG (26-34); Monocytes Absolute Auto 600 /uL (0-900); Monocytes Percent Auto 4.3 % (3-14); Neutrophils Absolute Auto 10600 /uL (1500-7000); Neutrophils Percent Auto 78.4 % (50-75); Platelet Count 319 X10^3/uL (150-400); Red Blood Cell Count 4.13 X10^6/uL (4.0-5.2); White Blood Cell Count 13.5 X10^3/uL (4.5-11.0)
--- NOTE | 2019-09-03 14:16 | PM.OBHP.1 ---
OB HPI Date/Time Date of admission: 09/03/19 Date Patient Seen: 09/03/19 Time Patient Seen: 14:16 History of Present Condition Chief complaint: nst : 3 Para: 2 Estimated Date of Delivery: 11/29/19 Estimated Gestational Age (weeks): 27 Narrative: Sayra Love is a 29 year old @27+4 by 9 week ultrasound with a complicated by posterior placenta previa and heart block, presenting to L&D with vaginal bleeding since yesterday evening accompanied by intermittent cramping. The patient reports that she had a small amount of bright red bleeding yesterday evening, and that she wanted to see if it stopped overnight before presenting to the hospital. She continued to have dark red to brown mucousy bleeding overnight, with periods of irregular cramping and tightening this morning that have now resolved. She reports normal movement and no loss of fluid, does not have any abdominal pain or tightening on presentation, and is otherwise feeling well with no abdominal trauma, no PIH symptoms, and no other complaints. The patient has been adherent to modified bedrest and pelvic rest since the previa diagnosis early in the , and is otherwise feeling well today. The patient has been monitored for a posterior placenta previa since early in the , and had bleeding and cramping throughout much of the 1st and early 2nd trimester. She had one bleed significant enough to soak a pad at 21 weeks that stopped spontaneously, and an episode of mild bleeding at 23+5 that spontaneously resolved. The patient was seen on 08/29 for vaginal spotting and cramping in L&D, monitored and administered nifedipine by the call provider, underwent an ultrasound with reassuring status, and discharged home with resolution of bleeding by the next day. She has had a heart arrhythmia noted at her anatomy scan s/p evaluation by Marshal Caballero and Uma at [facility] and cardiology. No structural abnormalities were found, maternal autoimmune evaluation was normal, maternal and paternal cardiac evaluations were normal, and the patient declined genetic screening. The arrhythmia has remained unchanged in character on weekly ultrasounds, with no signs of hydrops, normal movement and fluid, and appropriate growth. The patient had been previously scheduled for repeat evaluation at at 32 weeks. Her has been otherwise complicated by appendicitis s/p uncomplicated laparoscopic appendectomy ay 6 weeks gestation. 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 Evaluation Evaluation Baseline heart rate: 140 Laboratory results: Laboratory Tests 09/03/19 14:00 WBC 13.5 H RBC 4.13 Hgb 11.5 L Hct 34.7 L MCV 84.0 MCH 27.8 MCHC 33.0 RDW 14.0 Plt Count 319 Neut % (Auto) 78.4 H Lymph % (Auto) 14.4 L Grainger % (Auto) 4.3 Eos % (Auto) 2.5 Baso % (Auto) 0.4 Neut # (Auto) 03474 H Lymph # (Auto) 1900 Grainger # (Auto) 600 Eos # (Auto) 300 Baso # (Auto) 100 Comments: BPP performed, 12/25, MVP 7.6, cephalic with posterior placenta previa. As nature of heart block precludes EFM on our system, FHR being checked frequently with bedside ultrasound and unchanged with rate of normal beats in 140s, skipping every 3rd to 4th beat. status otherwise reassuring with movement and/or breathing seen with each bedside check. [facility] Social History marital status: household members: spouse, family, children and other pets and animals: Yes (cat - aware and a dog) education level: college occupational status: unemployed current occupational exposures/hazards: No iwona/hoahaoism: Taoist special iwona needs: No Smoking Status: Never smoker Meds Home Medications and Allergies Home Medications Medication Instructions Recorded Confirmed Type prenat.vits,leo,gex-xhrn-wfxlt 1 tab PO DAILY 04/27/19 08/06/19 History docusate sodium 100 mg PO DAILY #30 cap 07/24/19 08/06/19 Rx Allergies Allergy/AdvReac Type Severity Reaction Status Date / Time No Known Drug Allergies Allergy Verified 08/06/19 09:04 Review of Systems Constitutional Constitutional: Reports system reviewed and no additional complaints, except as documented Cardiovascular Cardiovascular: Reports system reviewed; no additional complaints, except as documented Respiratory Respiratory: Reports system reviewed and no additional complaints, except as documented Gastrointestinal Gastrointestinal: Reports as per HPI Genitourinary Genitourinary: Reports as per HPI Musculoskeletal Musculoskeletal: Reports system reviewed; no additional complaints, except as documented Neurologic Neurologic: Reports system reviewed and no additional complaints, except as documented Hematologic/Lymphatic Hematologic/Lymphatic: Reports system reviewed and no additional complaints, except as documented Allergic/Immunologic Allergic/Immunologic: Reports system reviewed and no additional complaints, except as documented Exam Vital Signs (past 8 hours): 120/62, HR 86, T 97.6, O2 98% Narrative Exam Narrative: Patient well appearing, resting in bed. Accompanied by . GI Palpation: soft and No tender External Female Exam: external appearance normal Speculum Exam - Vagina: vaginal bleeding (mild, brown to dark red and mucousy) Speculum Exam - Cervix: closed cervix (visually on speculum exam) OB/External & Speculum: vaginal bleeding (mild, brown to dark red and mucousy) Presentation: vertex Other: BPP 8/8, MVP 7.6. Cephalic presentation, posterior placenta previa. Character of heart rate arrythmia unchanged with FHR 140s outside of dropped beats Skin General: no rashes or lesions noted Objective Labs Result Diagrams: 09/03/19 14:00 Labs: Laboratory Results - last 24 hr 09/03/19 14:00 WBC 13.5 H RBC 4.13 Hgb 11.5 L Hct 34.7 L MCV 84.0 MCH 27.8 MCHC 33.0 RDW 14.0 Plt Count 319 Neut % (Auto) 78.4 H Lymph % (Auto) 14.4 L Grainger % (Auto) 4.3 Eos % (Auto) 2.5 Baso % (Auto) 0.4 Neut # (Auto) 60521 H Lymph # (Auto) 1900 Grainger # (Auto) 600 Eos # (Auto) 300 Baso # (Auto) 100 Assessment and Plan Assessment and Plan Assessment and Plan narrative: This patient with a known posterior placenta previa presents with her second bleeding episode since viability, with several periods of bleeding prior to viability. The patient is at high risk of requiring emergent delivery, and would be best served transfered to a site with a NICU while stable. This was discussed with the patient and her , including the risks of transport vs. benefits and the potential for emergency delivery. All questions were answered and the patient and her spouse vocalized understanding. - Patient NPO - 1L LR bolus with 125ccs/hr continuous - 12mg IM betamethasone administered at 15:20 on 09/02 - 4g loading, 2g continuous Mg sulfate for tocolysis after discussiong with [facility], to stop if bleeding intensifies - CBC stable, T&S drawn, blood type A+ - continuous toco, frequent bedside FH checks given heart blocks - Plan discussed with and patient to be transferred to Dr. Ventura at [facility] Time Spent with Patient Total time spent with greater than 50% in coordination of care (as documented) at patient's floor/unit and/or counseling patient:: Greater than 35 minutes
[2019-09-03 14:43] VITALS: BP 120/62
[2019-09-03] MEDS: MAGNESIUM SULFATE 4 GM/100 ML PIGGYBACK IV (15:23)
[2019-09-03] MEDS: BETAMETHASONE 30 MG/5 ML MDV 12 MG IM (15:23)
[2019-09-03] MEDS: MAGNESIUM SULFATE 20 GM/500 ML IV.SOLN IV (16:01)
== END 2019-09-03 16:31 | disposition home or self-care (01) ==
PROVIDERS: Admitting Provider Obstetrics & Gynecology; PCP Obstetrics & Gynecology; Referring Provider Obstetrics & Gynecology; Visit Provider Obstetrics & Gynecology
DX: O44.32 Partial placenta previa with hemorrhage, second trimester (principal); O36.8320 Maternal care for abnormalities of the fetal heart rate or rhythm, second trimester, not applicable or unspecified; R10.9 Unspecified abdominal pain; Z3A.27 27 weeks gestation of pregnancy
CPT/HCPCS: 59025; 59050; 76815; 85025; 86850; 86900; 86901; 96360; 96372; G0378; G0379; J0702; J3475

== ENCOUNTER → 2019-12-09 11:30 | Outpatient (CLI) | payer OTHER, MEDICAID, SELFPAY ==
[2019-12-09 12:29] LABS: Add Manual Diff / Slide Review NO; Basophils Absolute Auto 0 /uL (0-100); Basophils Percent Auto 0.4 % (0-2); Eosinophils Absolute Auto 600 /uL (0-450); Lymphocytes Absolute Auto 2000 /uL (1100-4500); Lymphocytes Percent Auto 26.7 % (25-40); Mean Corpuscular HGB Conc 33.3 % (30-36); Mean Corpuscular Hemoglobin 26.6 PG (26-34); Monocytes Absolute Auto 300 /uL (0-900); Monocytes Percent Auto 3.7 % (3-14); Neutrophils Absolute Auto 4500 /uL (1500-7000); Neutrophils Percent Auto 61.2 % (50-75); Platelet Count 255 X10^3/uL (150-400); Red Blood Cell Count 4.88 X10^6/uL (4.0-5.2); White Blood Cell Count 7.3 X10^3/uL (4.5-11.0)
== END ==
PROVIDERS: PCP Obstetrics & Gynecology; Referring Provider Obstetrics & Gynecology; Visit Provider Obstetrics & Gynecology
DX: Z86.2 Personal history of diseases of the blood and blood-forming organs and certain disorders involving the immune mechanism (principal)
CPT/HCPCS: 36415; 85025

== ENCOUNTER → 2020-02-25 07:21 | Outpatient (CLI) | payer OTHER, MEDICAID, SELFPAY ==
--- NOTE | 2020-02-25 07:22 | DI.US.S_ITS ---
PROCEDURE: US PELVIC COMPLETE INDICATIONS: DUB TECHNIQUE: Real-time scanning was performed of the pelvic organs, with image documentation. Additional endovaginal scanning was necessary due to incomplete visualization of the adnexal and endometrial structures by transabdominal scanning. COMPARISON: None. FINDINGS: Transabdominal scanning: Limited scanning through the kidneys shows no hydronephrosis. No pathologic free abdominal or pelvic fluid. Endovaginal scanning: Uterus: Uterus is normal in size at 7.5 x 5.7 x 5.5 cm. The endometrium measures 6 mm in combined thickness. There is a 3.1 x 3.4 x 3.8 cm fibroid seen on the left anteriorly. Ovaries: The right ovary measures 2.6 x 1.8 x 1.7 cm. The left ovary measures 2.7 x 2.2 x 2.1 cm. The ovaries have a normal sonographic appearance, with a dominant follicle noted within the left ovary that measures up to 1.2 cm, which is considered to be within physiologic limits. No adnexal masses are seen. IMPRESSION: 3.8 cm uterine fibroid seen on the left anteriorly. Dictated by: Saleem Kenyon M.D. on 02/25/2020 at 11:24 Approved by: Saleem Kenyon M.D. on 02/25/2020 at 11:26
== END ==
PROVIDERS: PCP Obstetrics & Gynecology; Referring Provider Obstetrics & Gynecology; Visit Provider Obstetrics & Gynecology
DX: N92.1 Excessive and frequent menstruation with irregular cycle (principal); D25.9 Leiomyoma of uterus, unspecified
CPT/HCPCS: 76830; 76856